=== PATIENT | female | born 1985 | race Asian ===

== ENCOUNTER 2016-04-18 10:02 | Emergency (ER) | payer OTHER ==
[2016-04-18 10:18] VITALS: BP 98/66; PULSE 75; RESP 17; TEMP 98.4; O2SAT 97
--- NOTE | 2016-04-18 11:22 | UCPHY ---
H & P Time Seen by Provider: 04/18/16 11:09 Patient Type: New HPI/ROS: This patient has a sore throat associated with cough. She also has a feeling wheezing and low-grade fevers to around 100 at home. Her symptoms started 6 days prior to arrival and she feels they are worsening. Her had similar symptoms, started antibiotics and now feels improved. He was diagnosed with bronchitis. ROS: No high fevers or chills. No other constitutional symptoms. HEENT: She complains of left ear pressure that is mild pulmonary: No respiratory distress. No pleuritic pain. She is having difficulty sleeping due to the frequent cough. Cardiovascular: No complaints GI: No complaints 7 point ROS is otherwise negative. Past Medical/Surgical History: Moderate obesity Depression Smoking Status: Never smoked Physical Exam: General Appearance: Alert, no distress. Eyes: Pupils equal and round no pallor or injection. ENT, Mouth: Mucous membranes moist. Nose: Clear discharge. Ears: External canals TMs clear bilaterally oropharynx: No erythema or exudates. No dysphonia. Respiratory: Bilateral rhonchi and mild expiratory wheeze. No rales. Cardiovascular: Regular rate and rhythm. No leg swelling or tenderness. Gastrointestinal: Abdomen is soft and nontender, no masses, bowel sounds normal. Neurological: Alert with no deficits. Skin: Warm and dry, no rashes. Musculoskeletal: Neck is supple nontender. Extremities are symmetrical, full range of motion. Psychiatric: Mood and affect normal DIFFERENTIAL DIAGNOSIS: After history and physical exam differential diagnosis was considered for bronchitis, viral versus bacterial, serous otitis, viral pharyngitis, strep pharyngitis Constitutional: Initial Vital Signs Temperature (C) 36.9 C 04/18/16 10:14 Heart Rate 75 04/18/16 10:14 Respiratory Rate 17 04/18/16 10:14 Blood Pressure 98/66 L 04/18/16 10:14 O2 Sat (%) 97 04/18/16 10:14 O2 Delivery Mode Room Air Allergies/Adverse Reactions: No Known Allergies Allergy (Unverified 04/18/16 10:12) Home Medications: Medication Instructions Recorded Albuterol Hfa Anes Only [Proair 2 puffs IH Q4 PRN #1 mdi 04/18/16 Hfa Icu (*)] Azithromycin [Zithromax] 250 mg PO DAILY #6 tab 04/18/16 Guaifenesin/Codeine Phosphate 5 - 10 ml PO Q6 PRN #120 ml 04/18/16 [Guaifenesin-Codeine Liquid] 04/18/16 Zoloft 100mg (*) 04/18/16 MDM/Departure - [facility] ED Course/Re-evaluation: I counseled the patient regarding bronchitis. She appears clinically well without evidence of toxicity. - Depart Disposition: Home, Routine, Self-Care Clinical Impression: Acute bronchitis Qualifiers: Bronchitis organism: unspecified organism Qualifier Code: (J20.9) Acute bronchitis, unspecified Pharyngitis Qualifiers: Pharyngitis/tonsillitis etiology: unspecified etiology Qualifier Code: (J02.9) Acute pharyngitis, unspecified Instructions: Acute Bronchitis (ED) Additional Instructions: Diagnoses: 1. Acute bronchitis 2. Pharyngitis 3. Serous otitis Plan: Humidifier Albuterol inhaler for cough, wheeze or shortness of breath Zithromax antibiotic Guaifenesin with codeine if needed for cough prevents sleep Return for any significant worsening despite treatment plan Stand Alone Forms: School Excuse, Work Excuse Prescriptions: Guaifenesin/Codeine Phosphate [Guaifenesin-Codeine Liquid] 5 - 10 ml PO Q6 PRN # 120 ml PRN Reason: Cough Albuterol Hfa Anes Only [Proair Hfa Icu (*)] 2 puffs IH Q4 PRN #1 mdi PRN Reason: Wheezing Azithromycin [Zithromax] 250 mg PO DAILY #6 tab Referrals: [place],. [Primary Care Provider] - As per Instructions - PQRS PQRS Measurement: NA
== END 2016-04-18 11:47 | disposition home or self-care (01) ==
LOC: CED 10:02
DX: J20.9 Acute bronchitis, unspecified (principal); J02.9 Acute pharyngitis, unspecified; E66.8 Other obesity
CPT/HCPCS: 99204-PO; G0463-PO